=== PATIENT | female | born 1940 | race Caucasian/White ===

== ENCOUNTER 2017-04-05 23:29 | Inpatient (IN) | payer OTHER ==
[~2017-04-05] VITALS: Ht 167.6 cm; Wt 73.3 kg
[2017-04-06 00:42] LABS: EOSINOPHIL (%) 0.1 % (0-5); HEMATOCRIT 30.6 % (36.0-46.0); IMMATURE GRANULOCYTE (%) 0.5 % (0.0-0.7); IMMATURE GRANULOCYTE COUNT 0.1 K/uL; INSTRUMENT ABS NEUTROPHIL CT 10.9 K/uL; LYMPHOCYTE COUNT 1.2 K/uL (1.0-2.8); MCH 31.2 PG (29.0-34.0); MCHC 33.3 G/DL (30.0-36.0); MCV 93.6 FL (83-99); MEAN PLAT.VOLUME 9.7 uM^3 (9.5-12.4); MONOCYTE (%) 10.7 % (3-12); MONOCYTE COUNT 1.5 K/uL (0-0.8); NEUTROPHIL (%) 79.6 % (45-76); NEUTROPHIL COUNT 10.9 K/uL (1.8-6.4); PLATELET COUNT 213 K/uL (156-360); RBC DIS.WIDTH-CV 13.1 % (11.8-14.6); RBC DIS.WIDTH-SD 45.1 % (39-53); RED BLOOD COUNT 3.27 M/uL (3.80-5.20); WHITE BLOOD COUNT 13.7 K/uL (4.1-10.2)
[2017-04-06 00:47] LABS: ADD MIUA? YES; BILIRUBIN NEGATIVE; BLOOD NEGATIVE; COLOR YELLOW ((YELLOW)); GLUCOSE (STRIP) NEGATIVE; KETONES NEGATIVE; LEUKOCYTES MODERATE; NITRITE POSITIVE; PROTEIN (STRIP) 30; SPECIFIC GRAVITY 1.013 (1.000-1.030); UROBILINOGEN 0.2 MG/DL (0.2-1.0)
[2017-04-06 00:55] LABS: CHLORIDE 101 mEq/L (99-109); POTASSIUM 3.7 mEq/L (3.7-5.4); SODIUM 130 mEq/L (136-147)
[2017-04-06 00:55] LABS: BACTERIA 1+ /HPF; EPITHELIAL CELLS RARE /HPF; MUCUS TRACE /LPF; RED BLOOD CELLS 0-5 /HPF (0-5); UCUL ADDED? NO; WHITE BLOOD CELLS 20-30 /HPF (0-5)
[2017-04-06 00:57] LABS: GLUCOSE 119 mg/dL (70-99)
[2017-04-06 00:58] LABS: ANION GAP 10 MEQ/L (2-14)
[2017-04-06 01:00] LABS: ALKALINE PHOSPHATASE 61 IU/L (3-129)
[2017-04-06 01:01] LABS: GFR ESTIMATE (CALCULATED) 46 mL/min/
[2017-04-06 01:02] LABS: UREA NITROGEN (BUN) 25 mg/dL (9-23)
[2017-04-06] MEDS ORDERED: ZOSTAVAX V19400 UNIT SC (01:28)
[2017-04-06] MEDS ORDERED: ASCORBIC ACID500 M3 PO (01:29)
[2017-04-06] MEDS ORDERED: PREVNAR 13 SYR0.5 ML IM (01:29)
[2017-04-06] MEDS ORDERED: SIMVASTATIN20 MG PO (01:29)
[2017-04-06] MEDS ORDERED: LOPRESSOR50 MG PO (01:29)
[2017-04-06] MEDS ORDERED: LOSARTAN POTAS100 MG PO (01:29)
[2017-04-06] MEDS ORDERED: BIOTIN1000 MICRO PO (01:30)
[2017-04-06] MEDS ORDERED: GLUCOSAMINE/1 TABLET PO (01:30)
[2017-04-06] MEDS ORDERED: TUMERIC PO (01:30)
[2017-04-06] MEDS ORDERED: VITAMIN E100 UNIT PO (01:30)
[2017-04-06] MEDS ORDERED: SELENIUM100 MICROG PO (01:30)
[2017-04-06] MEDS ORDERED: OIL OF OREGAN1500 MG PO (01:31)
[2017-04-06] MEDS ORDERED: TYLENOL EXTRA500 MG PO (01:31)
[2017-04-06 03:24] LABS: C-REACTIVE PROTEIN 168.6 MG/L (0-10); IRON 11 MCG/DL (35-150)
[2017-04-06 03:39] VITALS: BP 111/54
[2017-04-06 07:15] VITALS: BP 138/63
[2017-04-06 07:34] LABS: POINT-OF-CARE METER ID UU14162508
[2017-04-06 07:54] LABS: HEMATOCRIT 27.2 % (36.0-46.0); MCH 31.4 PG (29.0-34.0); MCHC 32.7 G/DL (30.0-36.0); MCV 96.1 FL (83-99); PLATELET COUNT 183 K/uL (156-360); RBC DIS.WIDTH-CV 13.2 % (11.8-14.6); RBC DIS.WIDTH-SD 46.8 % (39-53); RED BLOOD COUNT 2.83 M/uL (3.80-5.20); WHITE BLOOD COUNT 10.7 K/uL (4.1-10.2)
[2017-04-06 08:15] LABS: ANION GAP 11 MEQ/L (2-14); CHLORIDE 106 MEQ/L (99-109); GFR ESTIMATE (CALCULATED) 57 mL/min/; GLUCOSE 106 mg/dL (70-99); POTASSIUM 4.1 MEQ/L (3.7-5.4); SAMPLE HEMOLYSIS CHECK 0; SAMPLE ICTERIC CHECK 0; SAMPLE LIPEMIA CHECK 0; SODIUM 136 MEQ/L (136-147); UREA NITROGEN (BUN) 20 mg/dL (9-23)
[2017-04-06 09:38] LABS: EOSINOPHIL (%) 0.1 % (0-5); HEMATOLOGY COMMENT 1 SMEAR COMPATIBLE; IMMATURE GRANULOCYTE (%) 0.7 % (0.0-0.7); IMMATURE GRANULOCYTE COUNT 0.1 K/uL; INSTRUMENT ABS NEUTROPHIL CT 8.4 K/uL; LYMPHOCYTE COUNT 1.1 K/uL (1.0-2.8); MONOCYTE (%) 10.3 % (3-12); MONOCYTE COUNT 1.1 K/uL (0-0.8); NEUTROPHIL (%) 78.3 % (45-76); NEUTROPHIL COUNT 8.4 K/uL (1.8-6.4)
[2017-04-06 11:44] VITALS: BP 116/55
[2017-04-06 16:18] VITALS: BP 120/58
[2017-04-06 18:47] LABS: POINT-OF-CARE METER ID UU14162508
[2017-04-06 20:02] VITALS: BP 141/63
[2017-04-07 00:18] LABS: POINT-OF-CARE METER ID UU14162508
[2017-04-07 01:04] VITALS: BP 135/82
[2017-04-07 03:45] VITALS: BP 138/65
[2017-04-07 06:59] LABS: POINT-OF-CARE METER ID UU14162508
[2017-04-07 07:20] LABS: C DIFF TOXIN NEGATIVE (NEGATIVE)
[2017-04-07 07:21] LABS: PROBE CHECK PASS; SPECIMEN PROCESSING CONTROL PASS
[2017-04-07 07:55] VITALS: BP 128/60
[2017-04-07 16:05] VITALS: BP 142/63
[2017-04-07 21:55] VITALS: BP 137/63
[2017-04-08 00:41] VITALS: BP 104/55
[2017-04-08 06:22] LABS: POINT-OF-CARE METER ID UU14162508
[2017-04-08 06:42] LABS: HEMATOCRIT 24.8 % (36.0-46.0); MCH 32.6 PG (29.0-34.0); MCHC 33.9 G/DL (30.0-36.0); MCV 96.1 FL (83-99); MEAN PLAT.VOLUME 10.1 uM^3 (9.5-12.4); PLATELET COUNT 185 K/uL (156-360); RBC DIS.WIDTH-CV 13.7 % (11.8-14.6); RED BLOOD COUNT 2.58 M/uL (3.80-5.20); WHITE BLOOD COUNT 12.1 K/uL (4.1-10.2)
[2017-04-08 06:55] VITALS: BP 138/59
[2017-04-08 07:12] LABS: ANION GAP 9 MEQ/L (2-14); CHLORIDE 107 MEQ/L (99-109); GFR ESTIMATE (CALCULATED) 51 mL/min/; GLUCOSE 113 mg/dL (70-99); POTASSIUM 3.6 MEQ/L (3.7-5.4); SAMPLE HEMOLYSIS CHECK 0; SAMPLE ICTERIC CHECK 0; SAMPLE LIPEMIA CHECK 0; SODIUM 135 MEQ/L (136-147); UREA NITROGEN (BUN) 14 mg/dL (9-23)
[2017-04-08 09:51] LABS: POC NON-PRINT COM 1 ND
[2017-04-08 16:24] VITALS: BP 138/64
[2017-04-08 20:50] VITALS: BP 165/72
[2017-04-08 23:33] VITALS: BP 114/64
[2017-04-09 00:28] VITALS: BP 129/64
[2017-04-09 03:52] VITALS: BP 137/67
[2017-04-09 07:03] LABS: HEMATOCRIT 25.2 % (36.0-46.0); MCH 31.2 PG (29.0-34.0); MCHC 33.3 G/DL (30.0-36.0); MCV 93.7 FL (83-99); PLATELET COUNT 232 K/uL (156-360); RBC DIS.WIDTH-CV 13.6 % (11.8-14.6); RED BLOOD COUNT 2.69 M/uL (3.80-5.20); WHITE BLOOD COUNT 10.7 K/uL (4.1-10.2)
[2017-04-09 07:28] LABS: ANION GAP 9 MEQ/L (2-14); CHLORIDE 103 MEQ/L (99-109); GFR ESTIMATE (CALCULATED) 57 mL/min/; GLUCOSE 99 mg/dL (70-99); POTASSIUM 3.3 MEQ/L (3.7-5.4); SAMPLE HEMOLYSIS CHECK 0; SAMPLE ICTERIC CHECK 0; SAMPLE LIPEMIA CHECK 0; SODIUM 136 MEQ/L (136-147); UREA NITROGEN (BUN) 13 mg/dL (9-23)
[2017-04-09 08:03] VITALS: BP 151/71
[2017-04-09 16:09] VITALS: BP 148/69
[2017-04-10 00:40] VITALS: BP 138/68
[2017-04-10 07:05] LABS: HEMATOCRIT 25.2 % (36.0-46.0); MCH 32.3 PG (29.0-34.0); MCHC 34.1 G/DL (30.0-36.0); MCV 94.7 FL (83-99); MEAN PLAT.VOLUME 9.6 uM^3 (9.5-12.4); PLATELET COUNT 265 K/uL (156-360); RBC DIS.WIDTH-CV 13.9 % (11.8-14.6); RBC DIS.WIDTH-SD 47.2 % (39-53); RED BLOOD COUNT 2.66 M/uL (3.80-5.20); WHITE BLOOD COUNT 10.1 K/uL (4.1-10.2)
[2017-04-10 07:31] LABS: ANION GAP 9 MEQ/L (2-14); CHLORIDE 104 MEQ/L (99-109); GFR ESTIMATE (CALCULATED) > 59 mL/min/; GLUCOSE 96 mg/dL (70-99); POTASSIUM 3.8 MEQ/L (3.7-5.4); SAMPLE HEMOLYSIS CHECK 0; SAMPLE ICTERIC CHECK 0; SAMPLE LIPEMIA CHECK 0; SODIUM 136 MEQ/L (136-147); UREA NITROGEN (BUN) 14 mg/dL (9-23)
[2017-04-10 07:34] VITALS: BP 178/79
[2017-04-10] MEDS ORDERED: CIPROFLOXACIN500 M1 PO (09:51)
[2017-04-10] MEDS ORDERED: METRONIDAZOLE500 MG PO ×2 (09:51→10:08)
[2017-04-10] MEDS ORDERED: FERROUS GLUCON324 MG PO (09:51)
== END 2017-04-10 10:55 | disposition home or self-care (01) | DRG 689 ==
LOC: EME 23:29 → EDOF 04-06 02:05 → 2EAST 04-06 02:05
PROVIDERS: Emergency Medicine; Hospitalist; Internal Medicine
DX: N10 Acute pyelonephritis (principal); J96.01 Acute respiratory failure with hypoxia; K57.32 Diverticulitis of large intestine without perforation or abscess without bleeding; E87.70 Fluid overload, unspecified; E87.1 Hypo-osmolality and hyponatremia; E78.5 Hyperlipidemia, unspecified; I10 Essential (primary) hypertension; R73.03 Prediabetes; K59.00 Constipation, unspecified; D64.9 Anemia, unspecified; E87.6 Hypokalemia; B96.20 Unspecified Escherichia coli [E. coli] as the cause of diseases classified elsewhere; Z90.710 Acquired absence of both cervix and uterus; Z82.49 Family history of ischemic heart disease and other diseases of the circulatory system; Z82.0 Family history of epilepsy and other diseases of the nervous system
CPT/HCPCS: 71010; 74176; 80048; 80048 91; 80053; 81003; 82272; 82436; 82607; 82948; 83540; 83605; 83930; 83935; 84133; 84300; 84443; 84466; 85025; 85025 91; 85027; 86140; 87040; 87077; 87086; 87186; 87493; 94640; 94760; 94799; 99281; 99285; J0744; J1644; J1940; J1956; J2405; J2543; J7030; J7050; S0028; S0030